=== PATIENT | male | born 1980 | race Caucasian/White ===

== ENCOUNTER 2020-09-15 12:42 | Emergency (ER) | payer MEDICAID ==
[~2020-09-15] VITALS: Ht 188 cm; Wt 102.1 kg
[2020-09-15 12:49] VITALS: BP 102/78
--- NOTE | 2020-09-15 15:17 | NUR ---
pt walked to room. as
[2020-09-15] MEDS ORDERED: NEOSPORIN OINT. PKT 1 PACKET ONE (15:52)
== END 2020-09-15 16:11 | disposition home or self-care (01) ==
LOC: ED 14:28
DX: L03.116 Cellulitis of left lower limb (principal); F17.210 Nicotine dependence, cigarettes, uncomplicated
CPT/HCPCS: 99283